=== PATIENT | male | born 2000 | race Caucasian/White ===

== ENCOUNTER → 2020-03-24 | Outpatient (CLI) | payer OTHER ==
--- NOTE | 2020-03-24 10:22 | Diagnostic Imaging Report ---
INDICATION: Nondisplaced navicular fracture. COMPARISON: None available TECHNIQUE: 4 radiographs of the right wrist dated 03/24/2020. FINDINGS: Indistinct lucency with slight cortical disruption is noted associated with the mid aspect of the navicular bone, concerning for a recent subacute nondisplaced fracture. This is best seen on image 3 of 4. No additional acute fracture. No dislocation. Carpal alignment is well-maintained. Scapholunate distance is within normal limits. No suspicious radiopaque foreign body. IMPRESSION: Findings suspect for a recent/subacute nondisplaced fracture involving the mid pole of the scaphoid. Recommend immobilization with follow-up radiographs. Dictated by: Dictated on workstation # [id number]
== END ==
LOC: RAD FS 09:48
PROVIDERS: ATTEND Nurse Practitioner
DX: S62.024A Nondisplaced fracture of middle third of navicular [scaphoid] bone of right wrist, initial encounter for closed fracture (principal)
CPT/HCPCS: 73110

== ENCOUNTER → 2020-04-21 | Outpatient (CLI) | payer OTHER ==
--- NOTE | 2020-04-21 10:31 | Diagnostic Imaging Report ---
INDICATION: Nondisplaced fracture of the navicular bone COMPARISON: 03/24/2020 TECHNIQUE: 4 radiographs of the right wrist dated 04/21/2020 FINDINGS: Previously noted lucency through the mid pole of the scaphoid bone is again identified, appearing relatively similar to the prior examination. Alignment appears anatomic. No significant sclerosis of the proximal pole of the scaphoid. No significant periosteal reaction is identified at this time. No new fracture or dislocation. No destructive osseous process. Carpal alignment is well-maintained. No suspicious radiopaque foreign body. IMPRESSION: Nondisplaced fracture involving the mid pole of the scaphoid is again identified remaining in anatomic alignment. This appears essentially unchanged since the prior examination without definitive healing or developing necrosis of the proximal pole. Recommend immobilization with continued radiographic follow-up to ensure healing. No new acute osseous abnormality. Dictated by: Dictated on workstation # [id number]
== END ==
LOC: RAD FS 08:51
PROVIDERS: ATTEND Nurse Practitioner
DX: S62.024D Nondisplaced fracture of middle third of navicular [scaphoid] bone of right wrist, subsequent encounter for fracture with routine healing (principal); X58.XXXD Exposure to other specified factors, subsequent encounter
CPT/HCPCS: 73110

== ENCOUNTER → 2020-05-16 | Outpatient (CLI) | payer OTHER ==
--- NOTE | 2020-05-16 11:51 | Diagnostic Imaging Report ---
INDICATION: Ran over by a pig 3 weeks ago. Comparison with 04/21/2020. FINDINGS: Mid body fracture of the scaphoid is again demonstrated. There has been some bone formation along the fracture line. Alignment is good. No evidence of osteonecrosis. The remaining carpal bones appear normal. Radiocarpal joints in good alignment. IMPRESSION: Healing nondisplaced mid body fracture of the right scaphoid. Dictated by: Dictated on workstation # [id number]
== END ==
LOC: LAB FS 09:48
PROVIDERS: ATTEND Nurse Practitioner
DX: S62.024D Nondisplaced fracture of middle third of navicular [scaphoid] bone of right wrist, subsequent encounter for fracture with routine healing (principal)
CPT/HCPCS: 73110